=== PATIENT | male | born 1990 | race Caucasian/White ===

== ENCOUNTER 2019-06-04 14:23 | Emergency (ER) | payer OTHER ==
--- NOTE | 2019-06-04 14:45 | EDM.PDOC ---
ED HPI GENERAL MEDICAL PROBLEM - General Chief Complaint: Upper Extremity Injury/Pain Stated Complaint: POSS BROKEN RT HAND Time Seen by Provider: 06/04/19 14:44 Source of Information: Reports: Patient History Limitations: Reports: No Limitations - History of Present Illness INITIAL COMMENTS - FREE TEXT/NARRATIVE: HISTORY AND PHYSICAL: History of present illness: Patient is a 29-year-old male who presents to the emergency room today with complaints of right hand pain. He states he had punched a table on Thursday and since that time has had increased pain and swelling. He denies having any other injury, trauma or falls. Denies any other extremity involvement. Offers no systemic complaints at this time. Review of systems: As per history of present illness and below otherwise all systems reviewed and negative. Past medical history: As per history of present illness and as reviewed below otherwise noncontributory. Surgical history: As per history of present illness and as reviewed below otherwise noncontributory. Social history: See social history for further information Family history: As per history of present illness and as reviewed below otherwise noncontributory. Physical exam: General: Well-developed and well-nourished 29-year-old male. Alert and oriented. Nontoxic appearing and in no acute distress. HEENT: Atraumatic, normocephalic, pupils equal and reactive bilaterally, negative for conjunctival pallor or scleral icterus, mucous membranes moist, trachea midline. No drooling or trismus noted. No meningeal signs. No hot potato voice noted. Lungs: Clear to auscultation, breath sounds equal bilaterally, chest nontender. Heart: S1S2, regular rate and rhythm without overt murmur Abdomen: Soft, nondistended, nontender. Negative for masses or costovertebral tenderness. Skin: Intact, warm, dry. No lesions or rashes noted. Extremities: Soft tissue swelling and bruising noted to the right hand along the base of the third, fourth and fifth proximal knuckles. He is able to grasp firmly and fully extend his fingers. No snuffbox tenderness. Does not involve the wrist. He moves all extremities per self without difficulty or deficits, strong radial pulse with good cap refill. Neurovascular unremarkable. Neuro: Awake, alert, oriented. Cranial nerves II through XII unremarkable. Cerebellum unremarkable. Motor and sensory unremarkable throughout. Exam nonfocal. Notes: X-ray shows a comminuted fracture at the base of the right fifth metacarpal. Patient was made aware of the severity of his injury although this does not require surgery today it does require close follow-up with a hand surgeon. Information for follow-up was given to him. He declines wanting pain medication at this time. Supportive care measures were reviewed and discussed. Voices understanding and is agreeable to plan of care. Denies any further questions or concerns at this time. Diagnostics: X-ray Therapeutics: Fiberglass splint Prescription: Williston (#20) Impression: Right metacarpal fracture, 5th digit Plan: 1. Rest, ice, elevate the affected extremity. Please wear the splint as directed. 2. Tylenol and/or Ibuprofen as needed for pain management. 3. Follow up with the Orthopedic provider as we discussed. Call Thursday to schedule follow up. Return to the ED as needed and as discussed. Definitive disposition and diagnosis as appropriate pending reevaluation and review of above. Right Hand Pain Score (Numeric/FACES): 1 - Related Data Allergies Allergy/AdvReac Type Severity Reaction Status Date / Time No Known Allergies Allergy Verified 06/04/19 14:46 Home Meds: Home Meds Acetaminophen/HYDROcodone [[place]iston 325-5 MG] 1 dose PO Q4H #20 tablet 06/04/19 [Rx ] Review of Systems - Review of Systems Review Of Systems: Comprehensive ROS is negative, except as noted in HPI. ED EXAM, GENERAL - Physical Exam Exam: See Below (See dictation) Course - Vital Signs Last Recorded V/S: Last Vital Signs Temp 97.2 F 06/04/19 14:46 Pulse 87 06/04/19 14:46 Resp 16 06/04/19 14:46 BP 134/101 H 06/04/19 14:46 Pulse Ox 97 06/04/19 14:46 - Orders/Labs/Meds Orders: Active Orders 24 hr Category Date Time Status DME for Discharge [COMM] Stat Oth 06/04/19 15:33 Ordered Meds: Medications Discontinued Medications Generic Name Dose Route Start Last Admin Trade Name Freq PRN Reason Stop Dose Admin Ketorolac Tromethamine 60 mg 06/04/19 15:05 06/04/19 15:31 Toradol IM 06/04/19 15:06 Not Given ONETIME ONE Departure - Departure Time of Disposition: 15:46 Disposition: Home, Self-Care 01 Clinical Impression: Fracture of metacarpal bone Qualifiers: Encounter type: initial encounter Metacarpal bone: fifth Fracture type: closed Metacarpal location: base Fracture alignment: displaced Laterality: right Qualified Code(s): S62.316A - Displaced fracture of base of fifth metacarpal bone, right hand, initial encounter for closed fracture - Discharge Information Prescriptions: Acetaminophen/HYDROcodone [[place] 325-5 MG] 1 dose PO Q4H #20 tablet Referrals: PCP,Unknown [Primary Care Provider] - Forms: ED Department Discharge Additional Instructions: The following information is given to patients seen in the emergency department who are being discharged to home. This information is to outline your options for follow-up care. We provide all patients seen in our emergency department with a follow-up referral. The need for follow-up, as well as the timing and circumstances, are variable depending upon the specifics of your emergency department visit. If you don't have a primary care physician on staff, we will provide you with a referral. We always advise you to contact your personal physician following an emergency department visit to inform them of the circumstance of the visit and for follow-up with them and/or the need for any referrals to a consulting specialist. The emergency department will also refer you to a specialist when appropriate. This referral assures that you have the opportunity for follow-up care with a specialist. All of these measure are taken in an effort to provide you with optimal care, which includes your follow-up. Under all circumstances we always encourage you to contact your private physician who remains a resource for coordinating your care. When calling for follow-up care, please make the office aware that this follow-up is from your recent emergency room visit. If for any reason you are refused follow-up, please contact the [facility] Emergency Department at and asked to speak to the emergency department charge nurse. [facility] [address] [place] [id number] [facility] [address] [place] [id number] [facility] Professional [address], [address] [place] [address] 1. Rest, ice, elevate the affected extremity. Please wear the splint as directed. 2. Tylenol and/or Ibuprofen as needed for pain management. 3. Follow up with the Orthopedic provider as we discussed. Call Thursday to schedule follow up. Return to the ED as needed and as discussed. - My Orders Last 24 Hours: My Active Orders 06/04/19 15:33 DME for Discharge [COMM] Stat - Assessment/Plan Last 24 Hours: My Active Orders 06/04/19 15:33 DME for Discharge [COMM] Stat
[2019-06-04] MEDS ORDERED: Ketorolac 60 MG/2 ML SDV IM ONE (15:05)
--- NOTE | 2019-06-04 15:41 | CR ---
Indication: Crush injury. Technique: Three views of the right hand. No prior studies are available for comparison Findings: A comminuted fracture of the base of the right 5th metacarpal is identified. The joint spaces are well maintained. No other fractures identified. Impression: Comminuted fracture the base of the right 5th metacarpal Dictated by Jeannette Bal MD @ Jun 04 2019 3:38PM Signed by Dr. Jeannette Bal @ Jun 04 2019 3:39PM
== END 2019-06-04 16:21 | disposition home or self-care (01) ==
LOC: MW.ED 14:23
DX: S62.316A Displaced fracture of base of fifth metacarpal bone, right hand, initial encounter for closed fracture (principal); W22.03XA Walked into furniture, initial encounter
CPT/HCPCS: 29125; 73130-26-RT; 73130-RT; 99283; 99283-25